=== PATIENT | female | born 1965 | race Caucasian/White ===

== ENCOUNTER 2023-12-09 21:17 | Emergency (ER) | payer BC, SELFPAY ==
[2023-12-09 21:20] VITALS: BMI 28.9
[2023-12-09 21:23] VITALS: BP 188/89
[2023-12-09 21:46] LABS: Urine Albumin 3+ (Neg - Trace); Urine Bilirubin Negative (Negative); Urine Character Bloody (Clear); Urine Color Red; Urine Glucose Negative (Negative); Urine Ketone Trace (Negative); Urine Leukocyte 2+ (Negative); Urine Nitrite Negative (Negative); Urine Occult Blood 4+ (Negative); Urine Urobilinogen Negative (Neg - 1+)
[2023-12-09 21:54] LABS: Urine Bacteria Moderate (Negative); Urine Red Blood Cell >100 /HPF (0-2); Urine White Cell 21-25 /HPF (0-5)
--- NOTE | 2023-12-09 22:56 | ED.GENMED ---
Addendum entered and electronically signed by Tiburcio Moise PA-C 12/12/23 14:51:
Urine culture with greater than 100,000 colony-forming units of gram-negative bacilli. Patient started on Cipro. Sensitivities pending
Original Note:
History of Present Illness
General
Chief Complaint: Urinary Symptoms
Source: patient
Exam Limitations: none
Time Seen by Provider: 12/09/23 21:48
Travel History
Have you had any contact with someone who has COVID-19?: No
Do you have any symptoms of coronavirus? Fever > 100 degrees, chills, cough, shortness of breath, sore throat, loss of taste or smell, muscle aches, or headache?: No
History of Present Illness
History of Present Illness:
This is a 58 year old female that comes in with c/o Urinary tract infection. States that she started 2 nights ago with bladder spasm. States that today she felt like she was getting a UTI. States that she took U. T. Vibrance. States that she also
has blood in her urine and that her bladder feels sore. Denies any fever, chills, chest pain, SOB, abd pain, nausea, vomiting, diarrhea, headache, dizziness.
Past History
Past History
ED Past Medical History: Psychiatric (Bipolar, PTSD.), Other (Gallbladder attacks, Lyme's disease, renal calcullus) and Other (Migraine headaches, kidney stones); Negative Asthma, HTN, Hypercholesterolemia or NIDDM
ED Past Surgical History: ; Negative Appendectomy, Cardiac or Cholecystectomy
Patient has exhibited threatening behavior?: No
Social History
Tobacco: Former smoker
Alcohol: None
Drug: None
Personal:
Living: with family
Employment: Employed
Family History
Family History: Other (Noncontributory)
Review of Systems
Review of Systems
All Other Systems: ROS reviewed and negative except as documented in HPI and ROS
Constitutional: Reports no symptoms; Denies fever or chills
EENT: Reports no symptoms
Respiratory: Reports no symptoms
Cardiac: Reports no symptoms
ABD/GI: Reports no symptoms; Denies abdominal pain, nausea, vomiting or diarrhea
: Reports dysuria and other (bladder spasm)
Musculoskeletal: Reports no symptoms
Skin: Reports no symptoms
Neurological: Reports no symptoms; Denies dizzy or headache
Psychiatric: Reports no symptoms
Phy Exam
General Physical Exam
General Presentation: no apparent distress
General age: appears stated age
General Skin: warm and dry
General Habitus: normal
General Mental: alert
General Hydration: appears well hydrated
ENT Exam
ENT Exam: TM's normal, pharynx normal and neck supple
Eye Exam
Eye Exam: EOMI
Cardiovascular Exam
Cardiovascular Exam: regular rate/rhythm
Skin Exam
Skin Exam: normal color, warm/dry, no rash and no petechia
Psychiatric Exam
Psychiatric Exam: normal mood/affect
Course
Orders/Labs/Results
Orders:
Orders
12/09/23 21:27
Urinalysis Reflex To Culture Urgent
Date Specimen was Collected: 12/09/23
Time Specimen was Collected: 21:23
Urine Microscopic Reflex Cult Urgent
Urine Culture Urgent
ALISE Source: U
Specimen Description:
Date Specimen was Collected: 12/09/23
Time Specimen was Collected: 21:23
Abnormal Lab Results
12/09/23
21:27
Urine Ketones Trace A
(Negative)
Ur Occult Blood Reflex 4+ A
(Negative)
Leukocyte Esterase Rfl 2+ A
(Negative)
Urine RBC >100 A /HPF
(0-2)
Urine WBC (Reflex) 21-25 A /HPF
(0-5)
Urine Bacteria (Reflex) Moderate A
(Negative)
Urine Albumin (Reflex) 3+ A
(Neg - Trace)
Urine positive for infection.
Vital Signs
Initial and Last Documented VS:
Initial Vital Signs
Temp Pulse Resp Pulse Ox
98.3 F 85 16 98
12/09/23 21:20 12/09/23 21:20 12/09/23 21:20 12/09/23 21:20
Last Documented Vital Signs
Temp Pulse Resp BP Pulse Ox
98.3 F 85 16 188/89 98
12/09/23 21:20 12/09/23 21:20 12/09/23 21:20 12/09/23 21:23 12/09/23 21:20
MDM/Problems Addressed
Differential Diagnosis Includes:
UTi,
MDM/Problems Addressed:
This is a 58 year old female that comes in with c/o urinary tract infection. States that she started 2 days ago with bladder spasm. States that today she feels like she has a UTI. States that there is not blood in her urine.
Will get urine
Back into see patient. Patient states that Cipro works well for her. Will give patient her first dose here and a prescription for home. Patient to follow up with the family doctor. Patient to return with any fever, flank pain or any other concerns.
Chronic conditions affecting care:
NA
Acute Exacerbation and/or Progression of Chronic Illness:
NA
*Pulse Oximetry
Patient hypoxic: no
*EKG
Interpreted by ED Provider?: NA
Rate: EKG- N/A
*Sewing Machinist Interpretation
Rate: Sewing Machinist- N/A
*Critical Care Note
Total Time (30-74mins, 75-104mins- exclusive of procedures): Not Applicable
ED Attending Note
-
Portions of this chart may have been created with voice recognition software.� Occasional wrong word or��sound alike� substitutions may have occurred due to the inherent limitations of voice recognition software.
Discharge Plan
Departure
Patient Disposition: Home (Routine Discharge)
Date of Disposition: 12/09/23
Time of Disposition: 23:04
Patient with high blood pressure during this ER visit?: Yes
Condition: Good
Covid-19: Not Applicable
Discharge Problem:
Urinary tract infection
Instructions: Urinary Tract Infection, Adult (DC), BLOOD PRESSURE
Prescriptions:
New
ciprofloxacin HCl [Cipro] 500 mg tablet
500 mg PO DAILY Qty: 6 0RF
No Action
ciprofloxacin HCl [Cipro] 500 MG tablet
500 mg PO BID
doxycycline hyclate 100 MG capsule
100 mg PO Q12H Qty: 42 0RF
diazepam 2 MG tablet
2 mg PO TIDPRN PRN (Reason: spasm) Qty: 5 0RF
Referrals:
Filiberto Viera MD [Family Provider] - Call in 1-3 days for appt
Activity Restrictions/Additional Instructions:
As discussed, it looks like you have a urinary tract infection. You have been given your first dose of antibiotic here and a prescription for home. Please increase your water intake to 8-8oz glasses daily. Follow up with the family doctor for
further evaluation and repeat urine after you have completed the antibiotics. IF YOU HAVE ANY FEVER, INCREASED OR CHANGING PAIN, OR YOU HAVE ANY OTHER CONCERNS PLEASE RETURN TO THE EMERGENCY ROOM.
Interventions
Interventions:
*Risk Screen - Suicide Last Done: 12/09/23 21:20
*Neglect/Abuse Screening Last Done: 12/09/23 21:20
*ED COVID-19 Vaccine History Last Done: 12/09/23 21:20
[2023-12-09] MEDS: CIPRO 500 MG PO (23:03)
[2023-12-09 23:20] VITALS: BP 113/81
[2023-12-09] MEDS: MOTRIN 600 MG PO (23:20)
== END 2023-12-09 23:20 | disposition home or self-care (01) ==
LOC: EMR 21:17
PROVIDERS: Emergency Medicine; EMERGENCY PHYSICIAN Emergency Medicine; FAMILY PHYSICIAN Family Medicine
DX: N39.0 Urinary tract infection, site not specified (principal); R03.0 Elevated blood-pressure reading, without diagnosis of hypertension; Z87.891 Personal history of nicotine dependence
CPT/HCPCS: 99283; 81003; 81015; 87071; 87086; 87186

== ENCOUNTER → 2023-12-30 08:28 | Outpatient (REF) | payer BC, SELFPAY | LOC: RAD 08:28 | PROVIDERS: ATTENDING PHYSICIAN Urology; FAMILY PHYSICIAN Family Medicine | DX: R10.9 Unspecified abdominal pain (principal); N20.0 Calculus of kidney | CPT/HCPCS: 74018 ==

== ENCOUNTER → 2024-01-04 09:43 | Outpatient (REF) | payer BC, SELFPAY | LOC: HWRAD 09:43 | PROVIDERS: ATTENDING PHYSICIAN Urology; FAMILY PHYSICIAN Family Medicine; REFERRING PHYSICIAN Family Medicine | DX: N39.0 Urinary tract infection, site not specified (principal); N39.41 Urge incontinence; M62.89 Other specified disorders of muscle; N20.0 Calculus of kidney; Z12.31 Encounter for screening mammogram for malignant neoplasm of breast | CPT/HCPCS: 76770; 76856; 77063; 77067 ==

== ENCOUNTER → 2024-01-12 09:11 | Outpatient (REF) | payer BC, SELFPAY | LOC: WDC 09:11 | PROVIDERS: ATTENDING PHYSICIAN Family Medicine; FAMILY PHYSICIAN Family Medicine | DX: R92.8 Other abnormal and inconclusive findings on diagnostic imaging of breast (principal) | CPT/HCPCS: 76642; 77065 ==

== ENCOUNTER 2025-06-15 06:51 | Emergency (ER) | payer BC, SELFPAY ==
[2025-06-15 06:56] VITALS: BP 125/83
--- NOTE | 2025-06-15 07:23 | ED.GENMED ---
History of Present Illness
<Pro Hoang MD, Resident - Last Filed: 06/15/25 08:24>
General
Chief Complaint: Throat Problem
Source: patient
Exam Limitations: none
Time Seen by Provider: 06/15/25 07:08
Nursing documentation reviewed up to this point in time: agreed with
History of Present Illness
History of Present Illness:
59 year old female with a past medical history of bipolar disorder, recurrent UTIs, PTSD comes to the ED due to sore throat that she felt this morning. She said that she usually goes to [facility] for medical treatment but came to [place] today
due to being close to the area. She says that she has had fevers or chills along with diarrhea a few days ago. She said that she took doxycycline from her previous Lyme disease treatment from a few years ago for the diarrhea, which has seemed to
resolve. She has been following up with [facility] for her recurrent UTIs and recently gave urine samples there. Was not started on any antbiotics yet. Says she has a severe antibiotic allergy and can only take penicillin based antibiotics or
doxycyclin.
Past History
<Pro Hoang MD, Resident - Last Filed: 06/15/25 08:24>
Past History
ED Past Medical History: Psychiatric (Bipolar, PTSD, OCD), Other (Gallbladder attacks, Lyme's disease, renal calcullus) and Other (Migraine headaches, kidney stones); Negative Asthma, HTN, Hypercholesterolemia or NIDDM
ED Past Surgical History: ; Negative Appendectomy, Cardiac or Cholecystectomy
Patient has exhibited threatening behavior?: No
Social History
Tobacco: Former smoker
Alcohol: None
Drug: None
Personal:
Living: with family
Employment: Employed
Family History
Family History: Other (Noncontributory)
Review of Systems
<Pro Hoang MD, Resident - Last Filed: 06/15/25 08:24>
Review of Systems
Allergies reviewed?: Yes
Constitutional: Reports fever and chills
EENT: Reports no symptoms
Respiratory: Reports no symptoms
Cardiac: Reports no symptoms
ABD/GI: Reports diarrhea
: Reports dysuria
Musculoskeletal: Reports no symptoms
Skin: Reports no symptoms
Neurological: Reports no symptoms
Endocrine: Reports no symptoms
Hematologic/Lymphatic: Reports no symptoms
Psychiatric: Reports no symptoms
Phy Exam
<Pro Hoang MD, Resident - Last Filed: 06/15/25 08:24>
General Physical Exam
General Presentation: mild distress
General Skin: warm and dry
General Habitus: normal
General Mental: anxious
ENT Exam
ENT Exam: pharyngeal erythema
Cardiovascular Exam
Cardiovascular Exam: regular rate/rhythm and no edema
Pulmonary Exam
Pulmonary Exam: lungs clear, no respiratory distress, no crackles and no wheezing
Gastrointestinal Exam
Gastrointestinal Exam: normal bowel sounds, non tender, soft and non distended
Musculoskeletal Exam
Musculoskeletal Exam: full ROM and no edema
Skin Exam
Skin Exam: normal color and warm/dry
Psychiatric Exam
Psychiatric Exam: agitated and anxious
Course
<Pro Hoang MD, Resident - Last Filed: 06/15/25 08:24>
Orders/Labs/Results
Orders:
Orders
06/15/25 07:48
COVID-19 Antigen Urgent
Source: Nasal Swab
Rapid Strep Group A Urgent
ALISE Source: Throat/Pharynx
Specimen Description:
Date Specimen was Collected: 06/15/25
Time Specimen was Collected: 07:46
Vital Signs
Initial and Last Documented VS:
Initial Vital Signs
Temp Pulse Resp BP Pulse Ox
98.8 F 76 20 125/83 97
06/15/25 06:56 06/15/25 06:56 06/15/25 06:56 06/15/25 06:56 06/15/25 06:56
Last Documented Vital Signs
Temp Pulse Resp BP Pulse Ox
98.8 F 76 20 125/83 97
06/15/25 06:56 06/15/25 06:56 06/15/25 06:56 06/15/25 06:56 06/15/25 07:23
<Caleb Castorena DO - Last Filed: 06/15/25 08:15>
Orders/Labs/Results
Orders:
Orders
06/15/25 07:48
COVID-19 Antigen Urgent
Source: Nasal Swab
Rapid Strep Group A Urgent
ALISE Source: Throat/Pharynx
Specimen Description:
Date Specimen was Collected: 06/15/25
Time Specimen was Collected: 07:46
Vital Signs
Initial and Last Documented VS:
Initial Vital Signs
Temp Pulse Resp BP Pulse Ox
98.8 F 76 20 125/83 97
06/15/25 06:56 06/15/25 06:56 06/15/25 06:56 06/15/25 06:56 06/15/25 06:56
Last Documented Vital Signs
Temp Pulse Resp BP Pulse Ox
98.8 F 76 20 125/83 97
06/15/25 06:56 06/15/25 06:56 06/15/25 06:56 06/15/25 06:56 06/15/25 07:23
<Pro Hoang MD, Resident - Last Filed: 06/15/25 08:24>
MDM/Problems Addressed
Differential Diagnosis Includes:
Strep throat, COVID
MDM/Problems Addressed:
59-year-old female with past medical history of bipolar disorder, PTSD frequent UTIs came to the ED due to sore throat that started this morning.
Physical exam did not show any exudate in her throat but did show mild erythema
Will check for rapid strep, COVID
Has been following up with [facility]rology for treatment of recurrent UTIs
Strep test negative, COVID negative, will discharge patient. No antibiotics indicated at this time.
Chronic conditions affecting care: Psychiatric illness (Bipolar Disorder)
<Pro Hoang MD, Resident - Last Filed: 06/15/25 08:24>
*Pulse Oximetry
SaO2: 97
Oxygen Mode of Delivery: Room air
Patient hypoxic: no
*Critical Care Note
Total Time (30-74mins, 75-104mins- exclusive of procedures): Not Applicable
ED Attending Note
<Pro Hoang MD, Resident - Last Filed: 06/15/25 08:24>
-
Portions of this chart may have been created with voice recognition software.� Occasional wrong word or��sound alike� substitutions may have occurred due to the inherent limitations of voice recognition software.
<Caleb Castorena DO - Last Filed: 06/15/25 08:15>
ED Attending Note
Patient seen and examined by attending physician: Yes
I performed a history and physical exam of patient and discussed management with resident, I reviewed resident's note and agree with documented findings and plan of care.: Yes
ED Attending Note:
Note:
CHIEF COMPLAINT(S)
Sore throat and foot pain.
HISTORY OF PRESENT ILLNESS
The patient is a 59-year-old female who presents with a sore throat that began on Wednesday morning. The patient reports significant difficulty swallowing and intense pain. She denies experiencing a runny nose, congestion, or fever. Additionally, the
patient mentioned a history of foot surgery and recurrent swelling and pain in the area where metal was placed during a previous surgical intervention. She has fallen twice, exacerbating the injury and reports that the current issue originated
post-surgery when she was walking five to seven miles. The patient describes a worsening of symptoms after engaging in physical activity. She is not currently under the care of a surgeon for follow-up regarding her foot issue. The patient utilized
an orthotic and heel support, but it provides insufficient relief. She reports that the only significant relief comes from Epsom salt baths. She has also considered acupuncture to alleviate symptoms.
PAST MEDICAL AND SURGICAL HISTORY
The patient had surgery involving metal placement in her right foot. Details of why the surgery was performed or other specific past medical conditions are not discussed.
SOCIAL DETERMINANTS AFFECTING HEALTH
The patient mentioned using treatments common in her [place] community, such as applying planting or potato on spider bites, indicating the importance of cultural practices in her health decisions.
SOCIAL HISTORY
The patient reports big reactions to medications and has had blisters from taking Bactrim.
REVIEW OF SYSTEMS
- Throat: Sore throat since Wednesday morning, significant pain, difficulty swallowing, no associated fever.
- Foot: Recurrent swelling and pain in right foot where surgical metal was placed; worsens with activity.
PHYSICAL EXAM
General: The patient is alert and oriented.
Skin: Swelling and bruising noted on the right foot. No other significant findings reported.
Eye Ears, nose, mouth, and throat: Soft tissue attenuation with no significant stridor; uvula is normal; some post-nasal drip noted.
Cardiovascular: Good dorsalis pedis pulses bilaterally in the lower extremities.
Neurological: Not mentioned.
Musculoskeletal: Not mentioned.
Psychiatric: Not mentioned.
PROBLEM LIST
Acute Problems:
- Sore throat with significant pain and difficulty swallowing.
Chronic Problems:
- Recurrent foot pain and swelling related to post-surgical metal placement.
PLAN
1. Perform a throat swab and COVID-19 test to rule out infections.
2. Advise the patient on warm compresses for sore spots.
3. Recommended follow-up with a communications clerk, who may be a foot surgeon, for ongoing foot issues.
4. Encourage the use of Epsom salt baths for relief until further assessment.
DIFFERENTIAL DIAGNOSIS
The Differential Diagnosis includes, in no particular order and is not limited to:
1. Viral pharyngitis
2. Bacterial pharyngitis
3. COVID-19
4. Post-operative complication from foot surgery
5. Foot injury exacerbation
6. Contact dermatitis from external supports
7. Allergic reaction to certain medications or substances
8. Tendinitis or soft tissue inflammation
9. Metal allergy from surgical metal placement
10. Stress-induced musculoskeletal pain
Disposition:
SUMMARY OF ENCOUNTER
The patient is a 59-year-old female presenting with a sore throat. Examination of her throat is essentially normal, and she appears afebrile. The patient also reports chronic complaints related to OCD and PTSD, which are being managed as an
outpatient. Given the normal findings on examination and her chronic issues being managed outside the emergency department, she is considered stable for discharge.
DISPOSITION
Discharge.
ASSESSMENT
The patient presents with a sore throat with normal throat examination findings. Chronic mental health conditions, including OCD and PTSD, are noted.
PLAN
The patient is advised to follow up with her primary care provider or specialists managing her OCD and PTSD for ongoing care. She was informed that if symptoms worsen, she should return to the emergency department.
MEDICAL DECISION MAKING
-Complexity of Data Reviewed: Chronic conditions affecting care: OCD, PTSD. Differential Diagnosis includes:
1. Viral pharyngitis
2. Bacterial pharyngitis
3. COVID-19
4. Post-operative complication from foot surgery
5. Foot injury exacerbation
6. Contact dermatitis from external supports
7. Allergic reaction to certain medications or substances
8. Tendinitis or soft tissue inflammation
9. Metal allergy from surgical metal placement
10. Stress-induced musculoskeletal pain
-Risk:
Consideration of Admission/Observation: Escalation of care including admission/observation was considered given the complexity and risk of the patients presenting complaint, exam findings, and/or their underlying comorbidities. However, ultimately I
feel the patient is safe for outpatient management with close follow-up. Reasoning: Work-up reassuring, does not reveal any acute life/organ threatening processes, patients symptoms well controlled upon reevaluation, reexamination is reassuring,
vitals are stable, patient agreeable with discharge, reliable for follow-up.
Care significantly affected by Social Determinants of Health: Cultural practices and reactions to medications.
DIAGNOSIS
1. Sore throat, unspecified (ICD-10: J02.9)
2. Obsessive-compulsive disorder (ICD-10: F42.9)
3. Post-traumatic stress disorder, unspecified (ICD-10: F43.10)
Discharge Plan
Departure
Patient Disposition: Home (Routine Discharge)
Date of Disposition: 06/15/25
Time of Disposition: :
Patient with high blood pressure during this ER visit?: No
Condition: Good
Discharge Problem:
Pharyngitis
Instructions: Sore Throat, Adult (DC)
Prescriptions:
No Action
ciprofloxacin HCl [Cipro] 500 MG tablet
500 mg PO BID
doxycycline hyclate 100 MG capsule
100 mg PO Q12H Qty: 42 0RF
diazepam 2 MG tablet
2 mg PO TIDPRN PRN (Reason: spasm) Qty: 5 0RF
ciprofloxacin HCl [Cipro] 500 mg tablet
500 mg PO DAILY Qty: 6 0RF
amoxicillin-pot clavulanate [Augmentin] 500-125 mg tablet
1 tab PO Q12H 7 Days Qty: 14 0RF
Referrals:
UNKNOWN - PT NOT,INTERVIEWE [Family Provider]
Activity Restrictions/Additional Instructions:
Please follow up with your PCP for further follow up
No antibiotics indicated at this time
Interventions
Interventions:
*Risk Screen - Suicide Last Done: 06/15/25 06:56
*General Assessment Last Done: 06/15/25 06:56
*Neglect/Abuse Screening Last Done: 06/15/25 06:56
*ED- Fall Risk Assessment Last Done: 06/15/25 06:56
*ED COVID-19 Vaccine History Last Done: 06/15/25 06:56
ED-EENT Assessment Last Done: 06/15/25 07:47
ED- Pulmonary Assessment Last Done: 06/15/25 07:47
Discharge Date and Time
Print Language: FRISIAN
[2025-06-15 07:47] VITALS: BMI 24.9
[2025-06-15 08:10] LABS: COVID-19 Antigen Negative (Negative)
--- NOTE | 2025-06-15 08:32 | EDRN ---
Reviewed discharge instructions with patient. Verbalized understanding. Patient did not want to wait to have vital signs retaken because 'my dog is out in my car.'
== END 2025-06-15 08:30 | disposition home or self-care (01) ==
LOC: EMR 06:51
PROVIDERS: EMERGENCY PHYSICIAN Emergency Medicine
DX: J02.9 Acute pharyngitis, unspecified (principal); Z87.891 Personal history of nicotine dependence; F43.12 Post-traumatic stress disorder, chronic; F42.9 Obsessive-compulsive disorder, unspecified; Z11.52 Encounter for screening for COVID-19
CPT/HCPCS: 99283; 87070; 87811; 87880

== ENCOUNTER 2025-06-30 16:33 | Emergency (ER) | payer BC, SELFPAY ==
[2025-06-30 16:36] VITALS: BP 150/85
[2025-06-30 18:30] VITALS: BMI 26.9
--- NOTE | 2025-06-30 18:58 | EDRN ---
Pt says she is on day 4-5 of a migraine. Pt saw her neurologist at [facility] on the and was given toradol which did not hold the migraine. Pt called office yesterday and took 1 rizatriptan 10mg but did not take one before bedtime. Pt woke last
night and could night find the medicine to take it and says her migraine got worse around midnight going from ears to top of her head 'it almost felt like a seizure.' Pt able to sleep a little. Pt woke and felt fuzzy. Ran errands, came home and
laid in the dark. Pt took another rizatriptan and 1 tylenol/motrin and is concerned she will have another bad night which prompted her to come to the ED. Pt has photophonbia. Nausea no vomiting. Pt just finished augmentin for uti.
[2025-06-30 19:00] VITALS: BP 132/65
[2025-06-30] MEDS: NSS 1000 IV ×2 (19:40→22:11)
[2025-06-30] MEDS: TORADOL 15 MG IV ×2 (19:41→23:50)
[2025-06-30] MEDS: MAGNESIUM SULFATE 100 IV (19:46)
[2025-06-30 19:52] LABS: Hematocrit 33.9 % (37.0-47.0); Hemoglobin 11.6 g/dL (12.0-16.0); Mean Corp Hgb Conc. 34.2 g/dL (33.0-37.0); Mean Corpuscular Volume 85.4 fL (81.0-99.0); Platelet Count 235 10^3/uL (130-400); Red Cell Dist. Width 13.1 % (11.5-14.5)
[2025-06-30 20:00] VITALS: BP 135/62
[2025-06-30 20:03] LABS: Nucleated Red Blood Cells % 0 %
[2025-06-30 20:05] LABS: Blood Urea Nitrogen 23 mg/dl (7-17); Calcium 9.0 mg/dl (8.4-10.2); Carbon Dioxide 25 mmol/L (22-30); Chloride 110 mmol/L (98-107); Estimated Creatinine Clearance 82 ml/min; Glucose 100 mg/dl (70-99); Sodium 139 mmol/L (135-145); eGFR > 60.00
[2025-06-30 21:00] VITALS: BP 132/67
--- NOTE | 2025-06-30 21:48 | ED.GENMED ---
History of Present Illness
General
Chief Complaint: Seizure
Time Seen by Provider: 06/30/25 18:58
History of Present Illness
History of Present Illness:
59-year-old female with history of pet[place] seizures and migraines presenting to the emergency department for migraine headache. Patient reports headache for the past 3 days. She feels the headache at the right side of her head, which is the
location of her headaches typically. She tried taking her rizatriptan at home without significant relief. Also saw her primary care doctor 3 days ago who gave her IM Toradol without significant relief. She reports history of migraines after a
fall in 2020. She denies any recent fall at onset of headaches. Denies fever. Denies weakness or numbness to her extremities. Notes photophobia and phonophobia. She reports overnight her headache got so severe that she thought that she could
have been having a seizure, however denies any change in consciousness. Denies additional acute medical complaint
Past History
Past History
ED Past Medical History: Psychiatric (Bipolar, PTSD, OCD), Other (Gallbladder attacks, Lyme's disease, renal calcullus) and Other (Migraine headaches, kidney stones); Negative Asthma, HTN, Hypercholesterolemia or NIDDM
ED Past Surgical History: ; Negative Appendectomy, Cardiac or Cholecystectomy
Patient has exhibited threatening behavior?: No
Social History
Tobacco: Former smoker
Alcohol: None
Drug: None
Personal:
Living: with family
Employment: Employed
Family History
Family History: Other (Noncontributory)
Phy Exam
Physical Exam
Physical Exam:
General: Well-appearing, no clinical signs of dehydration, nontoxic and in no acute distress
HEENT: protecting airway, pupils equal and reactive, extraocular movements
Neck: appears supple
CV: Normal heart rate, regular rhythm
Resp: No accessory muscle use, no increased work of breathing, lungs clear to auscultation bilaterally
Abd: No distention
Extremities: No deformities, no swelling
Neuro: alert, no focal neurologic deficit
: deferred
Rectal: deferred
Psych: Normal affect
Skin: Intact
Course
Orders/Labs/Results
Orders:
Orders
06/30/25 19:19
0.9% Sodium Chloride 1000 ml [Nss] 1,000 ml IV BOLUS
Ketorolac [Toradol] 15 mg IV NOW STA
Magnesium Sulfate 1 G/D5w [Magnesium Sulfate] 1 gm in 100 ml IV NOW
06/30/25 19:40
Basic Metabolic Panel Urgent
Complete Blood Count/With Diff Urgent
06/30/25 21:53
0.9% Sodium Chloride 1000 ml [Nss] 1,000 ml IV BOLUS
Acetaminophen 1000MG/100Ml [Ofirmev] 1,000 mg in 100 ml IV ONCE
Acetaminophen IV Indication:: No NM & No Enteral Access
06/30/25 23:43
Ketorolac [Toradol] 15 mg IV NOW STA
Abnormal Lab Results
06/30/25
19:40
RBC 3.97 L 10^6/uL
(4.20-5.40)
Hgb 11.6 L g/dL
(12.0-16.0)
Hct 33.9 L %
(37.0-47.0)
Chloride 110 H mmol/L
(98-107)
BUN 23 H mg/dl
(7-17)
Glucose 100 H mg/dl
(70-99)
06/30/25 19:40
06/30/25 19:40
Vital Signs
Initial and Last Documented VS:
Initial Vital Signs
Temp Pulse Resp BP Pulse Ox
98.5 F 77 18 150/85 95
06/30/25 16:36 06/30/25 16:36 06/30/25 16:36 06/30/25 16:36 06/30/25 16:36
Last Documented Vital Signs
Temp Pulse Resp BP Pulse Ox
98.5 F 64 17 114/58 95
06/30/25 16:36 07/01/25 00:00 07/01/25 00:00 07/01/25 00:00 06/30/25 22:00
MDM/Problems Addressed
MDM/Problems Addressed:
59-year-old female with history of migraines presenting for headache. Vital signs on arrival are significant for mild hypertension, however resolved without intervention.
On exam patient is in no acute distress, slightly uncomfortable secondary to her headache. However she is nontoxic. Symptom presentation and physical exam appears most consistent with migrainous headache, particularly given prior history and
symptoms similar to prior migraines. No concern for infectious etiology, afebrile, no meningeal signs. No focal neurologic deficits on exam or concern for acute central neurologic process. No report of trauma or concern for any acute traumatic
intracranial abnormality. Blood pressure within normal limits, without concern for pseudotumor cerebri. No tenderness to the temporal arteries, without concern for temporal arteritis. Patient notes that her pain is worse than typical, so did
discuss advanced head imaging. Patient adamantly refusing. Will give Toradol and magnesium which patient notes has helped her in the past. She reports multiple drug allergies. Will start IV fluids
22:00 -Patient does report mild improvement of her symptoms. She is still having the headache, will administer IV Tylenol and additional fluids and reassess
00:35 -after dose of Tylenol and additional dose of Toradol, patient is feeling better. Ultimately feel stable for discharge home ambulatory. Return precautions discussed and patient verbalized understanding
*Pulse Oximetry
SaO2: 95
Oxygen Mode of Delivery: Room air
Patient hypoxic: no
*Critical Care Note
Total Time (30-74mins, 75-104mins- exclusive of procedures): Not Applicable
ED Attending Note
-
Portions of this chart may have been created with voice recognition software.� Occasional wrong word or��sound alike� substitutions may have occurred due to the inherent limitations of voice recognition software.
Discharge Plan
Departure
Prescriptions:
No Action
rizatriptan 10 mg Tablet
10 mg PO DAILY PRN (Reason: migraine)
CoQ-10
50 mg PO DAILY
Floradix
2 tsp PO DAILY
folic acid
1 tab PO DAILY
epinephrine [Epi E-Z Pen] 0.3 mg/0.3 mL Auto-Injector
0.3 mg IM ONCE PRN (Reason: anaphylaxis)
Referrals:
Filiberto Viera MD [Family Provider, Family Practice]
Interventions
Interventions:
*Risk Screen - Suicide Last Done: 06/30/25 16:39
*General Assessment Last Done: 06/30/25 16:39
*Neglect/Abuse Screening Last Done: 06/30/25 16:39
*ED- Fall Risk Assessment Last Done: 06/30/25 18:30
*ED COVID-19 Vaccine History Last Done: 06/30/25 18:30
ED- Cardiac Assessment Last Done: 06/30/25 19:09
ED- Neurological Assessment Last Done: 06/30/25 19:09
ED- Pulmonary Assessment Last Done: 06/30/25 19:09
Discharge Date and Time
Print Language: JAPANESE
[2025-06-30] MEDS: OFIRMEV 100 IV (22:11)
[2025-06-30 22:14] VITALS: BP 112/53
[2025-06-30 23:00] VITALS: BP 119/57
[2025-07-01] VITALS: BP 114/58
== END 2025-07-01 00:48 | disposition home or self-care (01) ==
LOC: EMR 16:33
PROVIDERS: EMERGENCY PHYSICIAN Student in an Organized Health Care Education/Training Program; FAMILY PHYSICIAN Family Medicine
DX: G43.909 Migraine, unspecified, not intractable, without status migrainosus (principal); G40.A09 Absence epileptic syndrome, not intractable, without status epilepticus; F31.9 Bipolar disorder, unspecified; F43.10 Post-traumatic stress disorder, unspecified; F42.9 Obsessive-compulsive disorder, unspecified; Z87.891 Personal history of nicotine dependence; Z88.9 Allergy status to unspecified drugs, medicaments and biological substances
CPT/HCPCS: 99284; 96374; 96375 ×2; 96376; 96361 ×2; 80048; 85025